=== PATIENT | male | born 1980 | race American Indian/Alaskan Native ===

== ENCOUNTER 2017-09-30 19:59 | Emergency (ER) | payer OTHER ==
[2017-09-30] MEDS ORDERED: TYLENOL ONE (20:41)
[2017-09-30 20:45] VITALS: BP 151/82
[2017-10-01] MEDS ORDERED: BOOSTRIX IM ONE (00:58)
--- NOTE | 2017-10-01 00:59 | Emergency Department Report ---
ED Laceration HPI - HPI Chief Complaint: Wound/Laceration Stated Complaint: LACERATION FINGER Time Seen by Provider: 09/30/17 21:54 Occurred When: Today Location: Upper Extremity Severity: mild Tetanus Status: Up to Date Laceration Symptoms: Yes Pain, No Foreign Body Sensation, No Numbness, No Weakness Other History: 36-year-old Afro-[place] male comes in complaint of a laceration to his third digit on his right hand from cutting it with a knife while cooking earlier this afternoon. Patient reports he is not sure when he had his last tetanus shot but no he needs one. Patient has no other complaints at this time. No past medical history only allergic to penicillin ED Review of Systems ROS: Stated complaint: LACERATION FINGER Other details as noted in HPI Comment: All other systems reviewed and negative Skin: other (cut to the middle finger on right hand) ED Past Medical Hx - Past Medical History Previous Medical History?: No - Social History Smoking Status: Never Smoker Substance Use Type: None Laceration Physical Exam - Exam General: Vital signs noted. No distress. Alert and acting appropriately. Wound Length (cm): 1 Laceration Location: Upper Extremity (right hand middle finger) Laceration Exam: Yes Normal Distal CMS, No Foreign Body, No Exposed Tendon, Vessel, or Nerve, No Tendon Injury ED Course Vital Signs 09/30/17 20:33 Temperature 97.9 F Pulse Rate 74 Respiratory 18 Rate Blood Pressure 151/82 O2 Sat by Pulse 98 Oximetry - Laceration /Wound Repair Right Finger Wound Location: upper extremity Wound Length (cm): 1 Wound's Depth, Shape: superficial Wound Explored: no foreign body removed Irrigated w/ Saline (ccs): 500 Betadine Prep?: Yes Wound Repaired With: Steri-strips (one Steri-Strip), Dermabond Sterile Dressing Applied?: Yes ED Medical Decision Making - Medical Decision Making Patient's been evaluated by this provider fast track. Patient laceration was treated with Dermabond Steri-Strip and Band-Aid. Patient has been ordered tetanus. Patient to follow-up if symptoms persist or gets worse. Critical care attestation.: If time is entered above; I have spent that time in minutes in the direct care of this critically ill patient, excluding procedure time. ED Disposition Clinical Impression: Laceration of finger of right hand Qualifiers: Encounter type: initial encounter Finger: middle finger Damage to nail status: without damage Foreign body presence: without foreign body Qualified Code(s): S61.212A - Laceration without foreign body of right middle finger without damage to nail, initial encounter Disposition: DC-01 TO HOME OR SELFCARE Is pt being admited?: No Does the pt Need Aspirin: No Condition: Stable Instructions: Skin Adhesive Care (ED) Additional Instructions: Please keep wound clean and dry. Referrals: PRIMARY CARE, [Primary Care Provider] - 3-5 Days [facility] [Provider Group] - 3-5 Days Forms: Work/School Release Form(ED)
== END 2017-10-01 01:06 | disposition home or self-care (01) ==
LOC: ED 19:59
DX: S61.212A Laceration without foreign body of right middle finger without damage to nail, initial encounter (principal); Z88.0 Allergy status to penicillin; W26.0XXA Contact with knife, initial encounter; Y93.G3 Activity, cooking and baking; Y92.89 Other specified places as the place of occurrence of the external cause; Y99.8 Other external cause status
CPT/HCPCS: 90471; 90715; 99282